=== PATIENT | female | born 1995 | race Caucasian/White ===

== ENCOUNTER 2021-05-02 08:00 | Emergency (ER) | payer OTHER ==
[2021-05-02 08:07] VITALS: BP 124/94; PULSE 74; TEMP 98.2; BMI 24.9
[2021-05-02] MEDS ORDERED: FAMOTIDINE 20 MG TABLET PO ONE (08:07)
[2021-05-02] MEDS ORDERED: LORATADINE 10 MG TABLET PO ONE (08:08)
[2021-05-02] MEDS ORDERED: DEXAMETHASONE SOD PHOSPHATE 10 MG/1 ML VIAL IM ONE (08:08)
[2021-05-02] MEDS ORDERED: DEXAMETHASONE SOD PHOSPHATE 10 MG/1 ML VIAL ONE (08:17)
[2021-05-02] MEDS ORDERED: DEXAMETHASONE LIQUID 0.5 MG/5 ML PO ONE (08:17)
[2021-05-02] MEDS ORDERED: FAMOTIDINE 20 MG TABLET ONE (08:17)
[2021-05-02] MEDS ORDERED: LORATADINE 10 MG TABLET ONE (08:18)
== END 2021-05-02 09:03 | disposition home or self-care (01) ==
LOC: JER 08:00
DX: T78.40XA Allergy, unspecified, initial encounter (principal)
CPT/HCPCS: 99283-25